=== PATIENT | female | born 1975 | race Caucasian/White ===

== ENCOUNTER 2016-08-07 12:28 | Emergency (ER) | payer BC ==
--- NOTE | ~2016-08-07 | CR58 ---
[facility]. [facility] A Service of [facility] & [facility] RADIOLOGY TEXT RESULTS PATIENT: MATTHEW LE LOCATION: SED : 71 UNIT #: [id number] AGE: [address]: Diana Morton SEX: F ORDER DR: [id number] [address] [address] [id number] E MR#: [id number] Acc #: [id number] NAME: MATTHEW LE : 1975 SEX: F STUDY DATE/TIME: 08/07/2016 12:39 UNIT: SED ROOM: STUDY DESCRIPTION: CR Cervical Spine 2 or 3 Views Attending Physician: Diana Morton Pa-C Ordering Physician: Diana Morton Pa-C Primary Care Physician: No Primary Care Physician MEDICAL IMAGING REPORT This report is preliminary unless electronic signature is present. EXAM Cervical spine, total of 5 views. HISTORY Neck and shoulder pain for 2 weeks. No known injury. TECHNIQUE AP, lateral, swimmer's, open-mouth, and angled odontoid views are submitted. FINDINGS There is mild reversal of the normal cervical lordosis. Alignment is otherwise normal. There is no subluxation. Disc space and vertebral body height is maintained. No fractures are identified. CONCLUSION Mild reversal of the normal cervical lordosis. Otherwise negative. Dictated by... Matti Anderson M.D. THIS IS AN ELECTRONICALLY VERIFIED REPORT Matti Anderson M.D. at 08/08/2016 7:10 AM LUISITO/landon TD: 08/07/2016 14:19 JOB #: [id number] MEDICAL IMAGING REPORT Page 1 of 1
[~2016-08-07 12:28] MED LIST: ALBUTEROL17 GM INH; AMOXICILLI250 MG/5 M PO; BACTRIM DS TABL1 TA1 PO; CLEOCIN HCL300 M1 PO; FLEXERIL PO; IBUPROFEN PO; IBUPROFEN100 MG; IBUPROFEN800 MG PO; KEFLEX500 M1 PO; LASIX; LORTAB 7.5-5001 TAB PO; METHOTREXATE2.5 MG; NO MEDICATIONS; PREDNISONE PO; TYLOX 5/500 CAP1 CAP PO; VISTARIL PO; ZITHROMAX1 G/PKT PO
[2016-08-07 13:20] LABS: POC - CKMB <1.0 ng/mL (0.0-7.9); POC - TROPONIN <0.05 ng/mL (<=0.05)
== END 2016-08-07 13:22 | disposition home or self-care (01) ==
LOC: SED 12:28
PROVIDERS: Physician Assistant
DX: M54.12 Radiculopathy, cervical region (principal); F17.200 Nicotine dependence, unspecified, uncomplicated
CPT/HCPCS: 72040; 82553; 84484; 96372; 99283; J1040; J1885